=== PATIENT | female | born 1985 | race Caucasian/White ===

== ENCOUNTER 2017-10-17 00:05 | Outpatient (CLI) | payer OTHER, MEDICAID ==
[2017-10-17] MEDS: TERBUTALINE 1 MG/ML INJ SC ×2 (04:48→06:15)
== END 2017-10-17 06:46 | disposition home or self-care (01) ==
LOC: OBT 00:05 → L-D 00:05 → OBT 06:46
DX: O62.9 Abnormality of forces of labor, unspecified (principal); Z3A.36 36 weeks gestation of pregnancy
CPT/HCPCS: 76815; 96372

== ENCOUNTER 2017-10-19 01:38 | Outpatient (CLI) | payer OTHER ==
[2017-10-19 02:37] LABS: ADD UMIC YES; UR ASCORBIC ACID NEGATIVE (NEGATIVE); UR BACTERIA FEW /HPF (NONE SEEN); UR BILIRUBIN (Dip) NEGATIVE (NEGATIVE); UR BLOOD (Dip) 2+ mg/dL (NEGATIVE); UR CLARITY CLEAR (CLEAR); UR COLOR YELLOW (YELLOW); UR GLUCOSE (Dip) NEGATIVE (NEGATIVE); UR KETONES (Dip) NEGATIVE (NEGATIVE); UR LEUKOCYTE ESTERASE (Dip) NEGATIVE Leu/ul (NEGATIVE); UR NITRITE (Dip) NEGATIVE (NEGATIVE); UR RBC 1 /HPF (0-5); UR SPECIFIC GRAVITY (Dip) 1.009 (1.003-1.030); UR TOTAL PROTEIN (Dip) NEGATIVE (NEGATIVE); UR UROBILINOGEN (Dip) NEGATIVE (NEGATIVE); UR WBC 0 /HPF (0-5)
[2017-10-19] MEDS: TERBUTALINE 1 MG/ML INJ SC ×2 (03:53→05:52)
== END 2017-10-19 07:00 | disposition home or self-care (01) ==
LOC: OBT 01:38 → L-D 01:38 → OBT 07:00
DX: O47.03 False labor before 37 completed weeks of gestation, third trimester (principal); Z3A.36 36 weeks gestation of pregnancy
CPT/HCPCS: 81001

== ENCOUNTER 2017-10-20 17:11 | Inpatient (IN) | payer OTHER ==
[2017-10-20] MEDS ORDERED: MISOPROSTOL 200 MCG TAB PR ×2 (18:00→22:00)
[2017-10-20] MEDS ORDERED: CARBOPROST 250 MCG INJ IM ×2 (18:00→22:00)
[2017-10-20] MEDS ORDERED: OXYTOCIN 30 UNITS/LR 500 ML IV ×2 (18:00→22:00)
[2017-10-20] MEDS ORDERED: OXYCODONE/ACETAMINOPHEN (5/325) TAB PO (18:00)
[2017-10-20] MEDS ORDERED: METHYLERGONOVINE 0.2 MG INJ IM ×2 (18:00→22:00)
[2017-10-20] MEDS: LACTATED RINGER'S 1,000 ML IV ×2 (18:14→23:07)
[2017-10-20] MEDS: OXYTOCIN 30 UNITS/LR 500 ML IV ×2 (18:16→18:41)
[2017-10-20] MEDS: LIDOCAINE 1% (MPF) 30 ML INJ INJ (18:20)
[2017-10-20] MEDS: IBUPROFEN 600 MG TAB PO (18:38)
[2017-10-20 20:03] LABS: ADD MAN DIFF? NO
[2017-10-20 20:09] LABS: WHITE BLOOD COUNT 13.3 10^3/ul (4.8-10.8)
[2017-10-20 20:09] LABS: BASOPHILS % 0.2 % (0.0-2.0); HEMATOCRIT 37.4 % (37.0-47.0); HEMOGLOBIN 12.4 g/dl (12.0-16.0); LYMPHOCYTES # 0.7 10^3/ul (0.8-2.9); MEAN CORPUSCULAR HEMOGLOBIN 27.9 pg (29.0-33.0); MEAN CORPUSCULAR HGB CONC 33.2 g/dl (32.0-37.0); MEAN PLATELET VOLUME 12.4 fl (7.4-10.4); MONOCYTE # 0.5 10^3/ul (0.3-0.9); MONOCYTES % 4.1 % (0.0-11.0); NEUTROPHIL # 11.9 10^3/ul (1.6-7.5); NEUTROPHILS % 89.7 % (39.0-77.0); PLATELET COUNT 136 10^3/UL (140-415); RED BLOOD COUNT 4.45 10^6/ul (4.20-5.40); RED CELL DISTRIBUTION WIDTH 13.7 % (11.5-14.5)
[2017-10-20 20:22] LABS: INR 0.95; PROTIME 12.8 Sec (11.9-14.9)
[2017-10-20 20:23] LABS: PARTIAL THROMBOPLASTIN TIME 28.8 Sec (25.0-35.0)
[2017-10-20 21:03] LABS: HEPATITIS B SURFACE ANTIGEN NEGATIVE (NEGATIVE)
[2017-10-20 21:37] LABS: AMPHETAMINE/METHAMPHETAMINE Negative (NEGATIVE); BARBITURATES Negative (NEGATIVE); BENZODIAZEPINES Negative (NEGATIVE); CANNABINOIDS Negative (NEGATIVE); COCAINE Negative (NEGATIVE); OPIATES Negative (NEGATIVE)
[2017-10-20] MEDS ORDERED: OXYCODONE/ASPIRIN (4.88/325) TAB PO (22:00)
[2017-10-20] MEDS ORDERED: ZOLPIDEM 5 MG TAB PO (22:00)
[2017-10-20 22:03] LABS: HIV 1&2 ANTIBODY NEGATIVE (NEGATIVE)
[2017-10-21] MEDS: WITCH HAZEL/GLYCERIN PAD PR (02:51)
[2017-10-21] MEDS: BENZOCAINE 20% 56 ML SPRAY TOP (02:51)
[2017-10-21] MEDS: LANOLIN 7 GM TUBE TOP (02:51)
[2017-10-21] MEDS: IBUPROFEN 600 MG TAB PO ×5 (06:07→23:36)
[2017-10-21] MEDS: LACTATED RINGER'S 1,000 ML IV ×3 (07:00→23:00)
[2017-10-21 08:46] LABS: ADD MAN DIFF? NO
[2017-10-21 09:02] LABS: BASOPHILS % 0.3 % (0.0-2.0); EOSINOPHILS % 0.3 % (0.0-7.0); HEMATOCRIT 36.2 % (37.0-47.0); HEMOGLOBIN 11.8 g/dl (12.0-16.0); LYMPHOCYTES # 1.7 10^3/ul (0.8-2.9); LYMPHOCYTES % 14.5 % (15.0-51.0); MEAN CORPUSCULAR HGB CONC 32.6 g/dl (32.0-37.0); MEAN PLATELET VOLUME 12.3 fl (7.4-10.4); MONOCYTE # 0.8 10^3/ul (0.3-0.9); NEUTROPHIL # 9.3 10^3/ul (1.6-7.5); NEUTROPHILS % 77.4 % (39.0-77.0); PLATELET COUNT 156 10^3/UL (140-415); RED BLOOD COUNT 4.21 10^6/ul (4.20-5.40); RED CELL DISTRIBUTION WIDTH 13.7 % (11.5-14.5)
[2017-10-21] MEDS: SENNA/DOCUSATE NA (8.6MG/50MG) TAB PO ×2 (09:18→21:38)
[2017-10-21 14:53] LABS: RAPID PLASMA REAGIN NONREACTIVE (NR)
[2017-10-22] MEDS: IBUPROFEN 600 MG TAB PO ×2 (05:51→12:07)
[2017-10-22] MEDS: SENNA/DOCUSATE NA (8.6MG/50MG) TAB PO (08:34)
[2017-10-22] MEDS: DIPHTH/TET/ACEL PERTUSS (ADULT) 0.5 ML VIAL IM* (12:08)
[2017-10-22 12:36] LABS: RUBELLA ANTIBODY - IGG 2.73 index
[2017-10-22] MEDS: WITCH HAZEL/GLYCERIN PAD PR (16:18)
[2017-10-22] MEDS: LANOLIN 7 GM TUBE TOP (16:18)
[2017-10-22] MEDS: BENZOCAINE 20% 56 ML SPRAY TOP (16:19)
[2017-10-22] MEDS: OXYCODONE/ASPIRIN (4.88/325) TAB PO (16:19)
[2017-10-24 12:57] LABS: RUBELLA ANTIBODY - IGM <20.00 AU/mL
== END 2017-10-22 17:50 | disposition home or self-care (01) | DRG 775 ==
LOC: OBT 17:11 → L-D 17:12 → PP1 10-21 19:57 → OBT 17:13 → L-D 17:13 → PP1 21:19
PROVIDERS: Obstetrics & Gynecology
PROC: 10E0XZZ Delivery of Products of Conception, External Approach (ICD-10-PCS; principal; 2017-10-20)
PROC: 0HQ9XZZ Repair Perineum Skin, External Approach (ICD-10-PCS; 2017-10-20)
PROC: 4A1HXCZ Monitoring of Products of Conception, Cardiac Rate, External Approach (ICD-10-PCS; 2017-10-20)
PROC: 3E0234Z Introduction of Serum, Toxoid and Vaccine into Muscle, Percutaneous Approach (ICD-10-PCS; 2017-10-22)
DX: O60.14X0 Preterm labor third trimester with preterm delivery third trimester, not applicable or unspecified (principal); O69.81X0 Labor and delivery complicated by cord around neck, without compression, not applicable or unspecified; O70.0 First degree perineal laceration during delivery; Z37.0 Single live birth; Z3A.36 36 weeks gestation of pregnancy; Z23 Encounter for immunization
CPT/HCPCS: 80307; 85025; 85610; 85730; 86592; 86703; 86762; 86900; 86901; 87340; 90715